=== PATIENT | male | born 1960 | race Caucasian/White ===

== ENCOUNTER 2019-08-15 16:42 | Inpatient (IN) | payer OTHER ==
[~2019-08-15] VITALS: Ht 182.9 cm; Wt 156.5 kg
[2019-08-15 18:06] LABS: BASOPHIL % 0.1 % (0-2); PLATELET COUNT 362 x10^3mcL (130-400)
[2019-08-15 18:07] LABS: RED CELL DISTRIBUTION WIDTH 17.4 % (11.5-14.5)
[2019-08-15 18:45] LABS: CALCIUM 8.4 mg/dL (8.5-10.1); CARBON DIOXIDE 24.6 mmol/L (21-32); CHLORIDE SERUM 104 mmol/L (98-107); CREATININE SERUM 1.3 mg/dL (0.7-1.3); GFR1 > 60 mL/min; GLUCOSE SERUM 116 mg/dL (74-106); POTASSIUM SERUM 4.1 mmol/L (3.5-5.1); SODIUM SERUM 138 mmol/L (136-145)
[2019-08-15 18:50] LABS: ALKALINE PHOSPHATASE 112 U/L (46-116); ALT/SGPT 14 U/L (16-63); AST/SGOT 18 U/L (15-37); BILIRUBIN TOTAL 0.43 mg/dL (0.20-1.00); TOTAL PROTEIN, SERUM 7.9 g/dL (6.4-8.2)
[2019-08-15 18:52] LABS: ALBUMIN 2.1 g/dL (3.4-5.0)
[2019-08-15] MEDS ORDERED: METOPROLOL SUCC50 M2 PO (23:09)
[2019-08-15] MEDS ORDERED: NOR10 PO (23:10)
[2019-08-15] MEDS ORDERED: ELIQUIS5 MG PO (23:10)
[2019-08-15 23:33] LABS: CHOLESTEROL/HDL RATIO 4.4; MAGNESIUM 2.1 mg/dL (1.8-2.4); PHOSPHOROUS 3.4 mg/dL (2.5-4.9)
[2019-08-16] VITALS (8 sets, daily range): BP systolic 97–142; BP diastolic 60–97
[2019-08-16 07:16] LABS: PLATELET COUNT 356 x10^3mcL (130-400)
[2019-08-16 07:20] LABS: BASOPHIL % 0 % (0-2); RED CELL DISTRIBUTION WIDTH 17.4 % (11.5-14.5)
[2019-08-16 07:28] LABS: CALCIUM 8.7 mg/dL (8.5-10.1); CARBON DIOXIDE 26.1 mmol/L (21-32); CHLORIDE SERUM 102 mmol/L (98-107); CREATININE SERUM 1.3 mg/dL (0.7-1.3); GFR1 > 60 mL/min; GLUCOSE SERUM 189 mg/dL (74-106); MAGNESIUM 2.2 mg/dL (1.8-2.4); PHOSPHOROUS 4.3 mg/dL (2.5-4.9); POTASSIUM SERUM 4.3 mmol/L (3.5-5.1); SODIUM SERUM 135 mmol/L (136-145)
[2019-08-16 14:48] LABS: UA SPECIFIC GRAVITY >=1.030 (1.005-1.035); microscopic required? YES; urine erythrocyte NEGATIVE (NEGATIVE)
[2019-08-17 05:45] VITALS: BP 107/73
[2019-08-17 07:22] LABS: CALCIUM 8.3 mg/dL (8.5-10.1); CARBON DIOXIDE 24.9 mmol/L (21-32); CHLORIDE SERUM 105 mmol/L (98-107); CREATININE SERUM 1.3 mg/dL (0.7-1.3); GFR1 > 60 mL/min; GLUCOSE SERUM 134 mg/dL (74-106); PHOSPHOROUS 3.9 mg/dL (2.5-4.9); POTASSIUM SERUM 4.6 mmol/L (3.5-5.1); SODIUM SERUM 138 mmol/L (136-145)
[2019-08-17 07:25] LABS: PLATELET COUNT 344 x10^3mcL (130-400)
[2019-08-17 07:30] LABS: BASOPHIL % 0 % (0-2); RED CELL DISTRIBUTION WIDTH 17.1 % (11.5-14.5)
[2019-08-17 09:14] VITALS: BP 131/65
[2019-08-17 12:13] VITALS: BP 112/73
[2019-08-17 13:39] VITALS: Ht 182.9 cm; Wt 156.5 kg
[2019-08-17 17:19] VITALS: BP 108/79
[2019-08-18 04:57] VITALS: BP 98/73
[2019-08-18 06:07] LABS: BASOPHIL % 0.4 % (0-2); PLATELET COUNT 354 x10^3mcL (130-400)
[2019-08-18 06:22] LABS: RED CELL DISTRIBUTION WIDTH 17.9 % (11.5-14.5)
[2019-08-18 06:26] LABS: CALCIUM 8.2 mg/dL (8.5-10.1); CARBON DIOXIDE 28.8 mmol/L (21-32); CHLORIDE SERUM 103 mmol/L (98-107); CREATININE SERUM 1.3 mg/dL (0.7-1.3); GFR1 > 60 mL/min; GLUCOSE SERUM 104 mg/dL (74-106); MAGNESIUM 2.1 mg/dL (1.8-2.4); POTASSIUM SERUM 4.4 mmol/L (3.5-5.1); SODIUM SERUM 137 mmol/L (136-145)
[2019-08-18 08:58] VITALS: BP 113/95
[2019-08-18 12:31] VITALS: BP 113/75
[2019-08-18 17:24] VITALS: BP 95/69
[2019-08-18 19:34] VITALS: BP 98/60
[2019-08-19 04:20] LABS: BASOPHIL % 0.3 % (0-2); PLATELET COUNT 336 x10^3mcL (130-400)
[2019-08-19 04:26] LABS: RED CELL DISTRIBUTION WIDTH 17.3 % (11.5-14.5)
[2019-08-19 04:31] LABS: CALCIUM 7.9 mg/dL (8.5-10.1); CARBON DIOXIDE 28.7 mmol/L (21-32); CHLORIDE SERUM 107 mmol/L (98-107); CREATININE SERUM 1.3 mg/dL (0.7-1.3); GFR1 > 60 mL/min; GLUCOSE SERUM 140 mg/dL (74-106); MAGNESIUM 1.8 mg/dL (1.8-2.4); PHOSPHOROUS 3.4 mg/dL (2.5-4.9); POTASSIUM SERUM 3.7 mmol/L (3.5-5.1); SODIUM SERUM 140 mmol/L (136-145)
[2019-08-19 08:12] VITALS: BP 120/72
[2019-08-19] MEDS ORDERED: AMERINET CHOICE1 PD3 IV (09:59)
[2019-08-19] MEDS ORDERED: KROGER NIC21 MG/24 H TOP (09:59)
[2019-08-19] MEDS ORDERED: TOR30I IM (10:01)
[2019-08-19] MEDS ORDERED: SEROQUEL50 M1 PO (10:02)
[2019-08-19 11:43] VITALS: BP 108/67
[2019-08-19 17:00] VITALS: BP 143/74
[2019-08-19 21:30] VITALS: BP 97/68
[2019-08-20 05:54] VITALS: BP 114/49
[2019-08-20 09:01] VITALS: BP 102/57
[2019-08-20 12:15] VITALS: BP 106/66
[2019-08-20 18:13] VITALS: BP 111/61
[2019-08-20 20:22] VITALS: BP 113/55
[2019-08-20 22:10] VITALS: BP 113/55
== END 2019-08-21 00:21 | DRG 720 ==
LOC: ED 16:42 → DU 22:52
PROVIDERS: Emergency Medicine; Internal Medicine; ADMIT General Practice
DX: A41.9 Sepsis, unspecified organism (principal); E43 Unspecified severe protein-calorie malnutrition; I50.23 Acute on chronic systolic (congestive) heart failure; I11.0 Hypertensive heart disease with heart failure; I48.91 Unspecified atrial fibrillation; E11.65 Type 2 diabetes mellitus with hyperglycemia; E83.51 Hypocalcemia; E66.01 Morbid (severe) obesity due to excess calories; Z68.42 Body mass index [BMI] 45.0-49.9, adult; L03.116 Cellulitis of left lower limb; L03.115 Cellulitis of right lower limb; I87.8 Other specified disorders of veins; I25.10 Atherosclerotic heart disease of native coronary artery without angina pectoris; F31.9 Bipolar disorder, unspecified; F17.210 Nicotine dependence, cigarettes, uncomplicated; Z79.01 Long term (current) use of anticoagulants; Z79.84 Long term (current) use of oral hypoglycemic drugs; Z95.810 Presence of automatic (implantable) cardiac defibrillator; Z22.322 Carrier or suspected carrier of Methicillin resistant Staphylococcus aureus
CPT/HCPCS: 82962; 83880; 97116-GP; 97530-GP; G0378; J0690; J1170; J1885; J1940; J2270; J2543; J3010; J3370; J3490; J7030; J7040; J7050; Q0092

== ENCOUNTER 2019-08-30 19:34 | Emergency (ER) | payer OTHER ==
[~2019-08-30] VITALS: Ht 177.8 cm; Wt 181.4 kg
[~2019-08-30 19:34] MED LIST: AMERINET CHOICE1 PD3 IV; ELIQUIS5 MG PO; KROGER NIC21 MG/24 H TOP; METOPROLOL SUCC50 M2 PO; NOR10 PO; SEROQUEL50 M1 PO; TOR30I IM
[2019-08-30 20:08] VITALS: Ht 177.8 cm; Wt 181.4 kg
== END 2019-08-31 00:05 | disposition expired ==
LOC: ED 19:34
DX: I46.9 Cardiac arrest, cause unspecified (principal); L03.116 Cellulitis of left lower limb; L03.115 Cellulitis of right lower limb; E66.01 Morbid (severe) obesity due to excess calories; Z68.43 Body mass index [BMI] 50.0-59.9, adult; Z88.6 Allergy status to analgesic agent; Z88.5 Allergy status to narcotic agent
CPT/HCPCS: 82962